=== PATIENT | male | born 1990 | race Caucasian/White ===

== ENCOUNTER 2023-05-18 08:17 | Day surgery (SDC) | payer OTHER ==
[~2023-05-18] VITALS: Ht 160 cm; Wt 81.2 kg
[2023-05-18 09:52] LABS: BASOPHILS % (AUTO) 0.4 % (0.0-2.0); EOSINOPHILS # (AUTO) 0.1 K/uL (0-0.4); EOSINOPHILS % (AUTO) 0.6 % (0.0-4.0); HEMATOCRIT 46.1 % (36-52); HEMOGLOBIN 15.6 g/dL (12.0-18.0); LYMPHOCYTES # (AUTO) 1.5 K/uL (2.0-11.5); LYMPHOCYTES % (AUTO) 18.5 % (20.5-51.1); MEAN CORPUSCULAR HEMOGLOBIN 30 pg (27-31); MEAN CORPUSCULAR HGB CONC 34 g/dL (33-37); MEAN CORPUSCULAR VOLUME 88.4 fL (80-94); MONOCYTES # (AUTO) 0.7 K/uL (0.8-1.0); MONOCYTES % (AUTO) 8.6 % (1.7-9.3); NEUTROPHILS # (AUTO) 5.8 K/uL (1.8-7.7); NEUTROPHILS % (AUTO) 71.9 % (42.2-75.2); PLATELET COUNT (AUTO) 260 K/uL (140-450); RED BLOOD CELL COUNT(AUTO) 5.21 MIL/uL (4.20-6.10); RED CELL DISTRIBUTION WIDTH 13.8 % (11.6-13.7); WHITE BLOOD COUNT (AUTO) 8.1 K/uL (4.8-10.8)
[2023-05-18 10:07] LABS: ALBUMIN 3.7 g/dL (3.4-5.0); ANION GAP 11.4 (8-16); CALCIUM 8.8 mg/dL (8.5-10.1); CARBON DIOXIDE 27.4 mmol/L (21-32); CREATININE 0.7 mg/dL (0.6-1.3); POTASSIUM 3.8 mmol/L (3.5-5.1); TOTAL BILIRUBIN 0.5 mg/dL (0.0-1.0); TOTAL PROTEIN, SERUM 7.1 g/dL (6.4-8.2)
[2023-05-18] MEDS ORDERED: LIDOCAINE MPF 2% 100 MG/5 ML VIAL INJ ONE (10:28)
[2023-05-18] MEDS ORDERED: PROPOFOL 200 MG/20 ML VIAL IV ONE ×2 (10:28)
[2023-05-18] MEDS ORDERED: NACL 0.9% 1,000 ML IV SCH ×2 (10:35)
[2023-05-18] MEDS ORDERED: LABETALOL 20 MG/4 ML VIAL IVP PRN (10:36)
[2023-05-18] MEDS ORDERED: hydrALAZINE 20 MG/ML VIAL IVP PRN (10:37)
== END 2023-05-18 11:29 | disposition home or self-care (01) ==
LOC: MDS 08:17 → MMU 08:19 → MDS 11:29
PROVIDERS: ATTEND Internal Medicine Gastroenterology
DX: K21.9 Gastro-esophageal reflux disease without esophagitis (principal); K29.70 Gastritis, unspecified, without bleeding; K44.9 Diaphragmatic hernia without obstruction or gangrene; E11.9 Type 2 diabetes mellitus without complications; Z90.49 Acquired absence of other specified parts of digestive tract; G40.909 Epilepsy, unspecified, not intractable, without status epilepticus; Z79.4 Long term (current) use of insulin; Z79.899 Other long term (current) drug therapy
CPT/HCPCS: 36415; 43239; 80053; 82948; 85025; J2001; J2704; 88305; 88312; 88313